=== PATIENT | male | born 1960 | race Caucasian/White ===

== ENCOUNTER 2016-05-17 16:02 | Emergency (ER) | payer OTHER ==
--- NOTE | ~2016-05-17 | CR151 ---
[facility] A Service of [facility] & [facility] RADIOLOGY TEXT RESULTS PATIENT: CLARISSA BAHENA LOCATION: [facility] : 56 UNIT #: [id number] AGE: [address]: Jann Steele DO SEX: M ORDER DR: [id number] [facility] [address] [place], [place] [address] [id number] E MR#: [id number] Acc #: [id number] NAME: CLARISSA BAHENA : 1960 SEX: M STUDY DATE/TIME: 05/17/2016 15:15 UNIT: ROE ROOM: STUDY DESCRIPTION: CR Hip Min 2 Views Rt Attending Physician: Jann Steele D.O. Referring Physician: Stef Smith M.D. Ordering Physician: Jann Steele D.O. Primary Care Physician: Stef Smith M.D. MEDICAL IMAGING REPORT This report is preliminary unless electronic signature is present EXAM Right hip, 2 views HISTORY Right hip pain for 4 days. No injury. FINDINGS 2 views of the right hip demonstrate normal bone alignment if the right hip. No acute fracture. No joint space narrowing or dislocation. Old healed fracture left pubic bone. IMPRESSION 1. Negative right hip. 2. Old healed fracture left pubic bone. Dictated by... Patel Mazariegos M.D. THIS IS AN ELECTRONICALLY VERIFIED REPORT Patel Mazariegos M.D. at 05/17/2016 11:39 PM DFL/psc TD: 05/17/2016 21:47 JOB #: [id number] MEDICAL IMAGING REPORT Page 1 of 1 COPY
--- NOTE | ~2016-05-17 | US85 ---
[facility] A Service of [facility] RADIOLOGY TEXT RESULTS PATIENT: CLARISSA BAHENA LOCATION: [facility] : 56 UNIT #: [id number] AGE: [address]: Jann Steele DO SEX: M ORDER DR: [id number] [facility] [address] [place], [place] [address] [id number] E MR#: [id number] Acc #: [id number] NAME: CLARISSA BAHENA : 1960 SEX: M STUDY DATE/TIME: 05/17/2016 15:31 UNIT: ROE ROOM: STUDY DESCRIPTION: [facility] [employer] [facility] Attending Physician: Jann Steele D.O. Referring Physician: Stef Smith M.D. Ordering Physician: Jann Steele D.O. Primary Care Physician: Stef Smith M.D. MEDICAL IMAGING REPORT This report is preliminary unless electronic signature is present EXAM Right lower extremity venous ultrasound, 05/17/2016 HISTORY Bilateral lower extremity swelling for 3 days. The patient has right apophyseal cyst 1 month ago. TECHNIQUE Venous ultrasound examination of the right lower extremity was performed using grayscale, spectral Doppler and color flow Doppler imaging. FINDINGS The examination is negative. There is no evidence of right lower extremity deep venous thrombus from the groin to the lower calf. Visualized greater saphenous vein is also patent. IMPRESSION Negative examination. No evidence of right lower extremity deep venous thrombosis. Dictated by... Jun Nieves M.D. THIS IS AN ELECTRONICALLY VERIFIED REPORT Jun Nieves M.D. at 05/18/2016 7:14 AM DAPHNIE/darryl TD: 05/17/2016 22:34 JOB #: [id number] MEDICAL IMAGING REPORT [facility] A Service of [facility] RADIOLOGY TEXT RESULTS PATIENT: CLARISSA BAHENA LOCATION: [facility] : 56 UNIT #: [id number] AGE: [address]: Jann Steele DO SEX: M ORDER DR: Page 1 of 1 COPY
[2016-05-17 15:46] LABS: BASOPHIL% 0.6 % (0-2.5); EOSINOPHIL# 0.2 X10e3 (0-0.7); EOSINOPHIL% 3.7 % (0.0-7.0); HEMATOCRIT 42.3 % (38.0-50.0); LYMPHOCYTE# 1.4 X10e3 (1.0-3.5); LYMPHOCYTE% 22.2 % (17.0-45.0); MEAN CELL VOLUME 87.8 FL (83-96); MEAN CORPUSCULAR HEMOGLOBIN 29.1 PG (28-34); MEAN CORPUSCULAR HGB CONC 33.1 g/dL (30-36); MEAN PLATELET VOLUME 6.8 FL (6.5-11.5); MONOCYTE# 0.5 X10e3 (0-1.0); MONOCYTE% 7.9 % (3.0-12.0); NEUTROPHIL# 4.2 X10e3 (1.5-7.1); NEUTROPHIL% 65.6 % (40-75); PLATELET COUNT 317 X10e3 (140-420); RED BLOOD COUNT 4.81 X10e (3.90-5.60); RED CELL DISTRIBUTION WIDTH 13.3 % (11.0-15.5); WHITE BLOOD COUNT 6.5 X10e3 (4.0-10.5)
[2016-05-17 15:47] LABS: DIFF IND NO
[2016-05-17 16:00] LABS: PARTIAL THROMBOPLASTIN TIME 28.9 SECONDS (23.5-31.3); PROTHROMBIN TIME (PATIENT) 10.4 SECONDS (9.6-11.5)
[~2016-05-17 16:02] MED LIST: AVODART0.5 MG PO; LISINOPRIL10 MG PO; MOBIC15 MG PO; PERCOCET 5/321 UDTAB; UROXATRAL10 MG PO; XANAX XR0.5 MG
[2016-05-17 16:09] LABS: ALBUMIN SERUM 4.6 g/dL (3.5-5.0); BILIRUBIN, DIRECT 0.2 mg/dL (0.0-0.2); BILIRUBIN,INDIRECT 0.5 mg/dL (0.0-0.9); BILIRUBIN,TOTAL 0.7 mg/dL (0.2-2.0); BUN/CREATININE RATIO 15.83; CALCIUM SERUM 9.1 mg/dL (8.4-10.2); CREATININE SERUM 1.2 mg/dL (0.6-1.4); GLOM FILT RATE Estimated 66.7 mL/min (>60); POTASSIUM 4.3 mmol/L (3.5-5.1); PROTEIN TOTAL SERUM 7.6 g/dL (6.0-8.3)
== END 2016-05-17 17:28 | disposition home or self-care (01) ==
LOC: CED 16:02
PROVIDERS: Emergency Medicine
DX: L03.115 Cellulitis of right lower limb (principal); E78.5 Hyperlipidemia, unspecified; J44.9 Chronic obstructive pulmonary disease, unspecified; F32.9 Major depressive disorder, single episode, unspecified
CPT/HCPCS: 36415; 73502; 80048; 80076; 85025; 85610; 85730; 93971; 99284